=== PATIENT | male | born 1945 | race Caucasian/White ===

== ENCOUNTER → 2025-09-14 | Outpatient (CLI) | payer MEDICARE ==
[2025-09-14 07:54] LABS: Source, Urine Clean Catch
[2025-09-14 10:59] LABS: Bilirubin, Urine Neg (Neg); Glucose Qualitative, Urine Neg (Neg); Ketones, Urine Neg (Neg); Leukocyte Esterase, Urine Neg (Neg); Protein, Urine Neg (Neg); Specific Gravity, Urine 1.010 (1.003-1.022); Urobilinogen, Urine NORM (Normal)
[2025-09-14 11:10] LABS: BASOPHILS ABSOLUTE AUTO 0.04 K/mm3 (0.00-0.23); BASOPHILS PERCENT AUTO 1 % (0-2); EOSINOPHILS ABSOLUTE AUTO 0.23 K/mm3 (0.00-0.68); EOSINOPHILS PERCENT AUTO 6 % (0-6); Hematocrit 36.8 % (37.0-53.0); Hemoglobin 12.1 g/dL (13.5-17.5); IMMATURE GRAN ABSOLUTE AUTO 0.01 K/mm3 (0.00-0.10); IMMATURE GRAN PERCENT AUTO 0 % (0-1); IMMATURE RETIC FRACTION 13.50 % (2.3-16.0); LYMPHOCYTES ABSOLUTE AUTO 1.29 K/mm3 (0.84-5.20); LYMPHOCYTES PERCENT AUTO 32 % (21-46); MONOCYTES ABSOLUTE AUTO 0.34 K/mm3 (0.16-1.47); MONOCYTES PERCENT AUTO 8 % (4-13); Mean Corpuscular HGB Conc 32.9 g/dL (31.5-36.5); Mean Corpuscular Volume 96 fL (80-100); NEUTROPHILS ABSOLUTE AUTO 2.13 K/mm3 (1.96-9.15); NEUTROPHILS PERCENT AUTO 53 % (41-73); NRBC ABSOLUTE 0.00 K/mm3 (0.00-0.02); NRBC Auto 0.0 /100 WBC (0.0-0.2); Platelet Count 228 K/mm3 (150-400); RDW Coefficient Variation 12.7 % (11.7-14.2); RDW Standard Deviation 45.0 fL (35.1-46.3); RETIC HGB EQUIVALENT 34.40 pg (28.20-36.60); RETICULOCYTE ABSOLUTE 0.0642 M/mm3 (0.0200-0.1100); RETICULOCYTE COUNT PERCENT 1.68 % (0.50-2.50)
[2025-09-14 11:31] LABS: Color, Urine Pale Yellow (P-Yellow)
[2025-09-14 11:49] LABS: Anion Gap 9 mmol/L (3-11); Blood Urea Nitrogen 23 mg/dL (8-24); CO2, Blood 25 mmol/L (21-32); Calcium, Blood 9.1 mg/dL (8.5-10.1); Chloride, Blood 108 mmol/L (98-108); Creatinine, Blood 1.40 mg/dL (0.60-1.20); Ferritin, Serum 81 ng/mL (26-388); Glucose, Blood 93 mg/dL (70-99); Potassium, Blood 4.2 mmol/L (3.5-5.5); Prostate Specific Antigen 1.110 ng/mL (0.000-4.000); Sodium, Blood 138 mmol/L (136-145); Total Iron Binding Capacity 300 ug/dL (250-450)
[2025-09-14 12:39] LABS: Stool Occult Bld Immuno 1 Negative (NEGATIVE); Stool Occult Bld Immuno 2 Negative (NEGATIVE); Stool Occult Bld Immuno 3 Negative (NEGATIVE)
[2025-09-15 17:26] LABS: ERYTHROPOIETIN 14 mU/mL (4-27)
[2025-09-15 20:12] LABS: HAPTOGLOBIN 139 mg/dL (30-200)
[2025-09-17 23:39] LABS: ALPHA 1 GLOBULIN 0.28 g/dL (0.19-0.46); ALPHA 2 GLOBULIN 0.69 g/dL (0.48-1.05); BETA GLOBULIN 0.80 g/dL (0.48-1.10); GAMMA 1.03 g/dL (0.62-1.51); IMMUNOFIXATION IFE Done; KAPPA QNT FREE LIGHT CHAINS 46.02 mg/L (3.30-19.40); KAPPA/LAMBDA FLC RATIO 1.57 (0.26-1.65); LAMBDA QNT FREE LIGHT CHAINS 29.36 mg/L (5.71-26.30); TOTAL PROTEIN, SERUM 6.4 g/dL (6.3-8.2)
== END | disposition home or self-care (01) ==
LOC: LAB 07:50 → LAB SHORT 07:50 → LAB FUT 09-07 10:35
PROVIDERS: Internal Medicine
DX: Z12.5 Encounter for screening for malignant neoplasm of prostate (principal); D64.9 Anemia, unspecified; N17.9 Acute kidney failure, unspecified
CPT/HCPCS: 36415; 80048; 81003; 82668; 82728; 82784; 83010; 83521; 83540; 83550; 84155; 84165; 85025; 85045; 85060; 86334; 86880; G0103; G0328